=== PATIENT | female | born 1985 | race Two or more races ===

== ENCOUNTER 2022-02-19 08:02 | Outpatient (CLI) | payer OTHER | END 2022-02-19 08:06 | disposition home or self-care (01) | LOC: SONOGRAMA 08:02 | PROVIDERS: ATTEND Pathology Anatomic Pathology & Clinical Pathology | DX: R59.0 Localized enlarged lymph nodes (principal) ==

== ENCOUNTER 2023-03-29 08:53 | Outpatient (CLI) | payer OTHER | END 2023-03-29 08:57 | disposition home or self-care (01) | LOC: RX STUDY 08:53 | PROVIDERS: ATTEND Obstetrics & Gynecology Reproductive Endocrinology | DX: N93.0 Postcoital and contact bleeding (principal) ==